=== PATIENT | female | born 1995 | race Caucasian/White ===

== ENCOUNTER 2017-01-06 10:23 | Emergency (ER) | payer BC ==
[2017-01-06] MEDS ORDERED: PANTOPRAZOLE 40 MG/10 ML VIAL IVP STA (11:05)
[2017-01-06] MEDS ORDERED: SODIUM CHLORIDE 0.9% 1,000 ML IV STA (11:05)
[2017-01-06] MEDS ORDERED: ONDANSETRON 4 MG/2 ML VIAL IVP STA (11:05)
--- NOTE | 2017-01-06 11:20 | ED ---
General Adult HPI - General Chief complaint: Nausea/Vomiting/Diarrhea Stated complaint: abd pain Time Seen by Provider: 01/06/17 10:47 Source: patient, RN notes reviewed, old records reviewed Mode of arrival: ambulatory Limitations: no limitations - History of Present Illness Initial comments: This is a 21-year-old female here for evaluation of nonspecific abdominal complaints, abdominal discomfort, occasional nausea no vomiting decreased appetite mild weight loss. Patient does admit to dietary changes lately an attempt to lose weight. No fevers no diarrhea no blood in her stool. Mild abdominal pain and cramping. No travel history no sick contacts. No prior history of GI evaluation, states going on for about a year - Related Data Home Medications Medication Instructions Recorded Confirmed No Known Home Medications [No 01/06/17 01/06/17 Known Home Medications] Allergies Allergy/AdvReac Type Severity Reaction Status Date / Time No Known Allergies Allergy Verified 01/06/17 11:27 Review of Systems ROS Statement: Those systems with pertinent positive or pertinent negative responses have been documented in the HPI. ROS Other: All systems not noted in ROS Statement are negative. Past Medical History Past Medical History: No Reported History History of Any Multi-Drug Resistant Organisms: None Reported Past Surgical History: No Surgical Hx Reported Past Psychological History: No Psychological Hx Reported Smoking Status: Never smoker Past Alcohol Use History: None Reported Past Drug Use History: None Reported General Exam Limitations: no limitations General appearance: alert, in no apparent distress Head exam: Present: atraumatic, normocephalic, normal inspection Eye exam: Present: normal appearance, PERRL, EOMI. Absent: scleral icterus, conjunctival injection, periorbital swelling ENT exam: Present: normal exam, mucous membranes moist Neck exam: Present: normal inspection. Absent: tenderness, meningismus, lymphadenopathy Respiratory exam: Present: normal lung sounds bilaterally. Absent: respiratory distress, wheezes, rales, rhonchi, stridor Cardiovascular Exam: Present: regular rate, normal rhythm, normal heart sounds. Absent: systolic murmur, diastolic murmur, rubs, gallop, clicks GI/Abdominal exam: Present: soft, normal bowel sounds. Absent: distended, tenderness, guarding, rebound, rigid Extremities exam: Present: normal inspection, full ROM, normal capillary refill. Absent: tenderness, pedal edema, joint swelling, calf tenderness Back exam: Present: normal inspection Neurological exam: Present: alert, oriented X3, CN II-XII intact Psychiatric exam: Present: normal affect, normal mood Skin exam: Present: warm, dry, intact, normal color. Absent: rash Course Vital Signs 01/06/17 10:27 Temperature 98.2 F Pulse Rate 73 Respiratory 20 Rate Blood Pressure 128/83 O2 Sat by Pulse 99 Oximetry - Reevaluation(s) Reevaluation #1: 01/06/17 12:26 Patient with no real symptom improvement Medical Decision Making - Medical Decision Making 21-year-old female ER for evaluation. Patient does see a physician of bowel pain. Patient has nonspecific symptoms. Symptoms for greater than a year. Lab work x-ray normal, patient we'll follow up with GI - Lab Data Result diagrams: 01/06/17 11:22 01/06/17 11:22 Lab Results 01/06/17 01/06/17 01/06/17 Range/Units 11:22 11:22 11:32 WBC 5.0 (3.8-10.6) k/uL RBC 5.54 H (3.80-5.40) m/uL Hgb 15.6 (11.4-16.0) gm/dL Hct 48.5 H (34.0-46.0) % MCV 87.6 (80.0-100.0) fL MCH 28.2 (25.0-35.0) pg MCHC 32.1 (31.0-37.0) g/dL RDW 12.7 (11.5-15.5) % Plt Count 289 (150-450) k/uL Neutrophils % 55 % Lymphocytes % 29 % Monocytes % 9 % Eosinophils % 2 % Basophils % 1 % Neutrophils # 2.7 (1.3-7.7) k/uL Lymphocytes # 1.4 (1.0-4.8) k/uL Monocytes # 0.4 (0-1.0) k/uL Eosinophils # 0.1 (0-0.7) k/uL Basophils # 0.1 (0-0.2) k/uL Sodium 141 (137-145) mmol/L Potassium 4.0 (3.5-5.1) mmol/L Chloride 105 (98-107) mmol/L Carbon Dioxide 24 (22-30) mmol/L Anion Gap 12 mmol/L BUN 10 (7-17) mg/dL Creatinine 0.83 (0.52-1.04) mg/dL Est GFR (MDRD) Af Amer >60 (>60 ml/min/1.73 sqM) Est GFR (MDRD) Non-Af >60 (>60 ml/min/1.73 sqM) Glucose 83 (74-99) mg/dL Calcium 9.8 (8.4-10.2) mg/dL Total Bilirubin 0.7 (0.2-1.3) mg/dL AST 26 (14-36) U/L ALT 34 (9-52) U/L Alkaline Phosphatase 46 (38-126) U/L Total Protein 8.2 (6.3-8.2) g/dL Albumin 4.8 (3.5-5.0) g/dL Amylase 56 (30-110) U/L Lipase 83 (23-300) U/L Urine HCG, Qual Not Detected (Not Detectd) - Radiology Data Radiology results: report reviewed (X-ray of abdominal is a chest is negative for acute disease), image reviewed Disposition Clinical Impression: Abdominal pain Disposition: HOME SELF-CARE Condition: Good Instructions: Abdominal Pain (ED) Referrals: Godwin Solares MD [Primary Care Provider] - 1-2 days Ash Mancilla MD [STAFF PHYSICIAN] - 1-2 days
[2017-01-06 11:46] LABS: Basophils # (A) 0.1 k/uL (0-0.2); Basophils % (A) 1 %; CH 28.2; CHCM 32.3; Eosinophils # (A) 0.1 k/uL (0-0.7); Eosinophils % (A) 2 %; HCT 48.5 % (34.0-46.0); HDW 2.13; HGB 15.6 gm/dL (11.4-16.0); Luc # (Auto) 0.22; Luc % (Auto) 4; Lymphocytes # (A) 1.4 k/uL (1.0-4.8); Lymphocytes % (A) 29 %; MCH 28.2 pg (25.0-35.0); MCHC 32.1 g/dL (31.0-37.0); MCV 87.6 fL (80.0-100.0); Mean Platelet Volume 7.1; Monocytes # (A) 0.4 k/uL (0-1.0); Monocytes % (A) 9 %; Neutrophils # (A) 2.7 k/uL (1.3-7.7); Neutrophils % (A) 55 %; RBC 5.54 m/uL (3.80-5.40); RDW 12.7 % (11.5-15.5); WBC (Perox) 4.66
[2017-01-06 11:53] LABS: ALT 34 U/L (9-52); AST 26 U/L (14-36); Alkaline Phosphatase 46 U/L (38-126); Amylase 56 U/L (30-110); Anion Gap 12 mmol/L; Blood Urea Nitrogen 10 mg/dL (7-17); Calcium 9.8 mg/dL (8.4-10.2); Carbon Dioxide 24 mmol/L (22-30); Chloride 105 mmol/L (98-107); Glucose 83 mg/dL (74-99); Non-African American GFR(MDRD) >60 (>60 ml/min/1.73 sqM); Sodium 141 mmol/L (137-145); Total Bilirubin 0.7 mg/dL (0.2-1.3); Total Protein 8.2 g/dL (6.3-8.2)
--- NOTE | 2017-01-06 12:10 | XR ---
EXAMINATION TYPE: XR abdomen acute w cxr DATE OF EXAM ORDERED: 01/06/2017 12:05 PM HISTORY: Pain. COMPARISON: None. FINDINGS: The lungs are clear. Pleural spaces are clear. Heart size is normal. Within the abdomen, the abdominal gas pattern is within normal limits. There is no evidence of obstru ction or free air. No unusual calcifications are seen. IMPRESSION: NORMAL CHEST AND ABDOMEN.
[2017-01-06 12:40] VITALS: BP 121/69; PULSE 79; RESP 18; TEMP 98.5
[2017-01-06 12:55] LABS: Appearance,Urine Clear (Clear); Bilirubin,Urine Negative (Negative); Glucose,Urine (UA) Negative (Negative); Ketones,Urine Negative (Negative); Leukocyte Esterase,Urine Negative (Negative); Nitrite,Urine Negative (Negative); PH, Urine 5.5 (5.0-8.0); Protein,Urine Negative (Negative); UA Billing (MACRO vs. MICRO) CHEM; Urobilinogen,Urine <2.0 mg/dL (<2.0)
== END 2017-01-06 12:39 | disposition home or self-care (01) ==
LOC: EC 10:23
DX: R10.9 Unspecified abdominal pain (principal); R11.0 Nausea; R63.0 Anorexia
CPT/HCPCS: 36415; 80053; 82150; 83690; 85025; 81003; 81025; 87086; 74022; 99284; 96374; 96375; 96361; J2405; C9113